=== PATIENT | female | born 2000 | race Hispanic/Latino ===

== ENCOUNTER 2023-04-25 22:32 | Inpatient (IN) | payer MEDICAID, OTHER ==
[2023-04-25 23:01] VITALS: BMI 30.3
[2023-04-25] MEDS ORDERED: Methylergonovine 0.2 MG/ML VIAL IM PRN (23:28)
[2023-04-25] MEDS ORDERED: Carboprost 250 MCG/ML AMP IM PRN (23:28)
[2023-04-25] MEDS ORDERED: Acetaminophen 500 MG TAB PO PRN (23:28)
[2023-04-25] MEDS ORDERED: Ibuprofen 800 MG TAB PO PRN (23:28)
[2023-04-25] MEDS ORDERED: HYDROcodone/Acetaminophen 5/325 mg Tablet PO PRN (23:28)
[2023-04-25] MEDS ORDERED: Ondansetron PF 4 MG/2 ML Vial IVP PRN (23:28)
[2023-04-25] MEDS ORDERED: hydrALAZINE 20 MG/ML VIAL SLOW IVP PRN (23:28)
[2023-04-25] MEDS ORDERED: Diphenoxylate HCl/Atropine Tablet PO PRN (23:28)
[2023-04-25] MEDS ORDERED: fentaNYL 50 mcg/mL 1 mL Vial SLOW IVP PRN (23:28)
[2023-04-25] MEDS ORDERED: Lidocaine 1% (PF) 30 ML VIAL SC PRN (23:28)
[2023-04-25] MEDS ORDERED: Tranexamic Acid 1,000 MG/10 ML VIAL IVP PRN (23:28)
[2023-04-25] MEDS ORDERED: Promethazine HCl 25 MG/ML VIAL IM PRN (23:28)
[2023-04-25] MEDS ORDERED: Oxytocin 30 units/NS 500 ML 500 ML IV SCH ×3 (23:30)
[2023-04-25] MEDS ORDERED: Lactated Ringer's 1,000 ML IV SCH (23:30)
[2023-04-26 00:57] LABS: Syphilis Antibody Nonreactive (Nonreactive); Syphilis Antibody Index 0.03 S/CO (<1.00 Non-Reactive)
[2023-04-26 00:59] LABS: HBSAg Index 0.16 S/CO (0-0.99); Hep B Surf Ag - L&D Non-Reactive S/CO (NonReactive)
[2023-04-26] MEDS: Lactated Ringer's 1,000 ML IV SCH ×2 (01:00→14:50)
[2023-04-26 01:33] LABS: Hematocrit 29.2 % (34.9-44.5); Mean Corpuscular HGB CONC 30.8 g/dL (32.0-36.0); Mean Corpuscular Hemoglobin 25.4 pg (27.0-33.0); Mean Corpuscular Volume 82.3 fl (81.6-98.3); Mean Platelet Volume 11.7 fl (7.4-10.4); Platelet Count 293 10x3/uL (150-450); RBC Distribution Width 15.9 % (11.5-14.5); Red Blood Cell (RBC) Count 3.55 10x6/uL (3.90-5.03)
[2023-04-26] MEDS ORDERED: Benzocaine-Menthol 82.5 ML CAN TOP PRN (13:46)
[2023-04-26] MEDS ORDERED: diphenhydrAMINE 25 MG CAP PO PRN (13:46)
[2023-04-26] MEDS ORDERED: Boostrix 0.5 ML (Tdap) VIAL (>/=7 yrs of age) IM ONE (13:46)
[2023-04-26] MEDS ORDERED: Bisacodyl 10 MG SUPP PR PRN (13:46)
[2023-04-26] MEDS ORDERED: Lanolin Ointment 7 GM TUBE TOP PRN (13:46)
[2023-04-26] MEDS ORDERED: Milk Of Magnesia 30 ML UDCUP PO PRN (13:46)
[2023-04-26] MEDS ORDERED: hydrALAZINE 20 MG/ML VIAL SLOW IVP PRN (13:46)
[2023-04-26] MEDS ORDERED: Promethazine HCl 25 MG/ML VIAL IM PRN (13:46)
[2023-04-26] MEDS: Ibuprofen 800 MG TAB PO SCH ×2 (15:32→21:16)
[2023-04-26] MEDS: Ferrous Sulfate 325 MG TAB PO SCH (17:11)
[2023-04-26] MEDS: HYDROcodone/Acetaminophen 5/325 mg Tablet PO PRN (21:16)
[2023-04-26] MEDS: Docusate 100 MG CAP PO SCH (21:17)
[2023-04-27] MEDS: Ibuprofen 800 MG TAB PO SCH ×2 (05:24→14:14)
[2023-04-27] MEDS: Ferrous Sulfate 325 MG TAB PO SCH ×2 (08:49→17:35)
[2023-04-27] MEDS: Docusate 100 MG CAP PO SCH (08:49)
[2023-04-27] MEDS ORDERED: Prenatal Vitamin 1 TAB PO SCH (09:00)
[2023-04-27] MEDS: HYDROcodone/Acetaminophen 5/325 mg Tablet PO PRN ×2 (10:43→17:37)
[2023-04-27 11:05] VITALS: BP 124/63; TEMP 98.4
== END 2023-04-27 20:35 | disposition home or self-care (01) | DRG 807 ==
LOC: CSHLD/OP 22:32 → CSHLD 23:22 → CSHPP 04-26 13:57
PROVIDERS: ADMIT Family Medicine; ATTEND Family Medicine
PROC: 10E0XZZ Delivery of Products of Conception, External Approach (ICD-10-PCS; principal; 2023-04-26)
PROC: 0KQM0ZZ Repair Perineum Muscle, Open Approach (ICD-10-PCS; 2023-04-26)
PROC: 10907ZC Drainage of Amniotic Fluid, Therapeutic from Products of Conception, Via Natural or Artificial Opening (ICD-10-PCS; 2023-04-26)
DX: O69.81X0 Labor and delivery complicated by cord around neck, without compression, not applicable or unspecified (principal); Z37.0 Single live birth; O70.1 Second degree perineal laceration during delivery; Z3A.37 37 weeks gestation of pregnancy; Z79.899 Other long term (current) drug therapy; Z88.8 Allergy status to other drugs, medicaments and biological substances
CPT/HCPCS: 36415; 85027; 86780; 86850; 86900; 86901; 87340; 99285; J2001; J7120

== ENCOUNTER 2024-07-15 01:39 | Inpatient (IN) | payer OTHER ==
[2024-07-15] MEDS ORDERED: Erythromycin Base 0.5% Oint 1 GM TUBE ONE (02:32)
[2024-07-15] MEDS ORDERED: Phytonadione Neonatal 1 MG/0.5 ML AMP ONE (02:32)
[2024-07-15] MEDS ORDERED: Tranexamic Acid 1,000 MG/10 ML VIAL IVP PRN (03:07)
[2024-07-15] MEDS ORDERED: Acetaminophen 500 MG TAB PO PRN (03:07)
[2024-07-15] MEDS ORDERED: Diphenoxylate HCl/Atropine Tablet PO PRN (03:07)
[2024-07-15] MEDS ORDERED: Misoprostol 200 MCG TAB PR PRN (03:07)
[2024-07-15] MEDS ORDERED: Methylergonovine 0.2 MG/ML VIAL IM PRN (03:07)
[2024-07-15] MEDS ORDERED: Carboprost 250 MCG/ML AMP IM PRN (03:07)
[2024-07-15] MEDS ORDERED: Ondansetron PF 4 MG/2 ML Vial IVP PRN (03:07)
[2024-07-15] MEDS ORDERED: hydrALAZINE 20 MG/ML VIAL SLOW IVP PRN ×2 (03:07→03:09)
[2024-07-15] MEDS ORDERED: Promethazine HCl 25 MG/ML VIAL IM PRN (03:07)
[2024-07-15] MEDS ORDERED: Bisacodyl 10 MG SUPP PR PRN (03:09)
[2024-07-15] MEDS ORDERED: Milk Of Magnesia 30 ML UDCUP PO PRN (03:09)
[2024-07-15] MEDS ORDERED: Boostrix 0.5 ML (Tdap) VIAL (>/=7 yrs of age) IM ONE (03:09)
[2024-07-15] MEDS ORDERED: Zolpidem Tartrate 5 MG TAB PO PRN (03:09)
[2024-07-15 03:11] VITALS: BMI 34.0
[2024-07-15] MEDS ORDERED: Oxytocin 30 units/NS 500 ML 500 ML IV SCH (03:15)
[2024-07-15] MEDS ORDERED: Ibuprofen 800 MG TAB PO PRN (03:22)
[2024-07-15] MEDS: Ibuprofen 800 MG TAB PO SCH (03:35)
[2024-07-15] MEDS: Lidocaine 1% (PF) 30 ML VIAL ONE (03:36)
[2024-07-15 03:45] LABS: Hematocrit 35.7 % (34.9-44.5); Hemoglobin 11.1 g/dL (12.0-15.5); Mean Corpuscular HGB CONC 31.1 g/dL (32.0-36.0); Mean Corpuscular Hemoglobin 24.7 pg (27.0-33.0); Mean Corpuscular Volume 79.5 fL (81.6-98.3); Mean Platelet Volume 10.8 fL (7.4-10.4); Platelet Count 294 10x3/uL (150-450); RBC Distribution Width 15.2 % (11.5-14.5); Red Blood Cell (RBC) Count 4.49 10x6/uL (3.90-5.03); White Blood Cell (WBC) Count 18.7 10x3/uL (3.5-10.5)
[2024-07-15 04:15] LABS: HBsAg Index 0.25 S/CO (0-0.99); Hep B Surf Ag - L&D Non-Reactive S/CO (NonReactive)
[2024-07-15 04:16] LABS: Syphilis Antibody Nonreactive (Nonreactive); Syphilis Antibody Index 0.03 S/CO (<1.00 Non-Reactive)
[2024-07-15] MEDS: Ferrous Sulfate 325 MG TAB PO SCH (07:54)
[2024-07-15] MEDS: Docusate 100 MG CAP PO SCH (07:54)
[2024-07-15] MEDS: Benzocaine-Menthol 82.5 ML CAN TOP PRN (10:26)
[2024-07-16 08:15] VITALS: BP 115/61; TEMP 98.2
== END 2024-07-16 18:50 | disposition home or self-care (01) | DRG 776 ==
LOC: CSHLD 02:25 → MERGE 02:25 → CSHPED 03:50
PROVIDERS: ADMIT Obstetrics & Gynecology; ATTEND Obstetrics & Gynecology
PROC: 0HQ9XZZ Repair Perineum Skin, External Approach (ICD-10-PCS; principal; 2024-07-15)
PROC: 0UQMXZZ Repair Vulva, External Approach (ICD-10-PCS; 2024-07-15)
DX: O73.0 Retained placenta without hemorrhage (principal); O70.0 First degree perineal laceration during delivery; O71.82 Other specified trauma to perineum and vulva
CPT/HCPCS: 36415; 85027; 86780; 86850; 86900; 86901; 87340; 88307